=== PATIENT | female | born 1980 | race Hispanic/Latino ===

== ENCOUNTER 2019-06-11 06:57 | Day surgery (SDC) | payer BC ==
[2019-06-11] MEDS ORDERED: NA CHLORIDE 0.9% 250 ML ONE (07:37)
[2019-06-11 08:16] VITALS: BMI 34.1
[2019-06-11 09:50] VITALS: BP 113/67; TEMP 97.7; O2SAT 99
== END 2019-06-11 12:01 | disposition home or self-care (01) ==
LOC: DS 06:57
PROVIDERS: ATTEND Internal Medicine
DX: D64.9 Anemia, unspecified (principal)
CPT/HCPCS: 36415; 86900; 86850; 86901; 85018; 85014; 36430; P9016

== ENCOUNTER 2019-07-23 13:53 | Day surgery (SDC) | payer BC ==
[2019-07-23] MEDS ORDERED: CEFAZOLIN/SWI 1gm 1 GM/10 ML SYR IVP SCH (14:00)
[2019-07-23] MEDS ORDERED: Ringers Lactate 1,000 ML IV ONE ×2 (14:05→17:11)
[2019-07-23] MEDS ORDERED: CEFAZOLIN/SWI 1gm 1 GM/10 ML SYR ONE (14:06)
[2019-07-23 14:24] LABS: Protime INR 1.07
[2019-07-23 14:24] LABS: Urine Appearance CLEAR; Urine Bilirubin NEGATIVE (NEG); Urine Blood 3+ (NEG); Urine Glucose NEGATIVE (NEG); Urine Protein 2+ (NEG); Urine Specific Gravity 1.025 (1.005-1.030); Urine Urobilinogen 0.2 mg/dL (0.2-1.0)
[2019-07-23 14:25] LABS: Urine Microscopic Reflex ORDER UMIC
[2019-07-23 14:26] LABS: Specific Gravity 1.025 (1.005-1.030)
[2019-07-23 14:29] LABS: Absolute Lymphocytes (CBC) 1.9 K/uL (0.7-4.9); Basophils % 0.8 % (0-1.3); Hematocrit 35.7 % (36.0-45.0); Lymphocytes % 24.2 % (15.3-44.8); MPV 9.6 fL (7.6-11.3); RBC Red Blood Cell Count 4.85 M/uL (3.86-4.86)
[2019-07-23 14:35] LABS: Urine Bacteria 20-50 /HPF (<20); Urine Mucus MOD /HPF (NONE SEEN); Urine RBC LOADED /HPF (NONE SEEN)
[2019-07-23 14:37] LABS: Urine Color RED
[2019-07-23 14:39] LABS: Urine Culture Reflex Order REFLEXED
[2019-07-23] MEDS ORDERED: LIDOCAINE 2% MPF 5 ML VIAL ONE (14:57)
[2019-07-23] MEDS ORDERED: PROPOFOL 200 MG/20 ML VIAL IV ONE (14:57)
[2019-07-23] MEDS ORDERED: dexAMETHasone 10 MG/ML VIAL ONE (14:58)
[2019-07-23] MEDS ORDERED: FENTANYL CITR 100 MCG/2 ML ONE ×2 (14:58→16:52)
[2019-07-23] MEDS ORDERED: ONDANSETRON 4 MG/2 ML VIAL ONE (14:58)
[2019-07-23] MEDS ORDERED: KETOROLAC 30 MG/ML INJ ONE (14:58)
[2019-07-23] MEDS ORDERED: SILVER NITRATE 1 APPL TOP ONE (15:23)
[2019-07-23 15:25] LABS: Anisocytosis 2+; Blood Morphology Comment NOTED (NOT SEEN); Platelet Estimate ADEQ
--- NOTE | 2019-07-23 15:25 | PREOPHP ---
Date of Admission: 07/23/2019 History Of Present Illness: This is a 39-year-old female with severe dysfunctional uterine bleeding, was seen in the office and started on control pills twice a day. Did that through [facility] of May and June. Seems to have good success and now is bleeding to her pills. A week o r so ago, her hemoglobin was 12; it is 11 now in the office, but she is severely bleeding here. Her uterus seems to be normal size. Both adnexa clear, but her blood loss is substantial and she has alr jennifer had 1 blood transfusion. She needs an immediate D and C. Full preoperative counseling concerni ng procedure and possible complications including infection, blood loss, anesthetic complications, in jury to bladder, bowel, ureter, postoperative complications, and clots in the legs. We discussed hys teroscopy, MyoSure ablation. We will do a frozen section and not do the ablation unless tissue appea rs normal. Patient has history of palpitations, but no other known health problems. She ate a taco this morning, will stay n.p.o., and we will probably do the surgery sometime later today. I do not t hink this surgery can be postponed until tomorrow if she is bleeding significantly. Family History: Basically noncontributory to present illness and she has family history of cancers, but not genital cancers. Mother and father with hypertension. Past Surgical History: She has had 3 C-sections. She has had a tubal. Allergies: SHE HAS NO ALLERGIES. Social History: She does not smoke. Physical Examination: HEENT: Clear. Pupils are equal, round, and reactive to light and accommodation. Conjunctivae well perfused. No oral, lingual, or buccal lesions. Chest and Lungs: Clear. Heart: Without murmurs, thrills, heaves, or rubs. Breasts: Not examined. Genitourinary: The uterus is small. Both adnexa clear. Extremities: Clear without edema, cyanosis, or clubbing. She is bleeding substantially here in the office and needs to go straight to the hospital, be admitte d, and have D and C with the other mentioned procedures. KENISHA/RAJ Voice ID: [id number]
[2019-07-23 18:16] VITALS: O2SAT 100
[2019-07-23 18:18] VITALS: BP 122/76; TEMP 97.4
--- NOTE | 2019-07-24 01:38 | DS ---
Dismissal Summary: Patient underwent hysteroscopy with MyoSure, but ablation was not possible rosanna hernandez of inadequate seal with the cervix. Estimated blood loss at the time of surgery 150 mL. She got 1 g of Ancef. We will watch her in the recovery room for the next hour or so and then dismiss her to r eturn to my office in 1 week for followup to report any temperature elevation of 100 degrees or great er, severe pain, heavy bleeding, or any other type of abnormalities. We will await pathology report since it was not possible to do ablation. Patient knows that the recurrence of the bleeding in the f uture may occur and we could attempt an ablation another time when the cervix is less patulous. This will be discussed with the patient. Right now, we are just stabilizing the patient and we will dismi ss her and follow up in my office. KENISHA/RAJ Voice ID: [id number] Report ID: [id number]
--- NOTE | 2019-07-24 01:38 | OP ---
Surgeon: All Lazaro MD Preoperative Diagnosis: Severe dysfunctional uterine bleeding. History: Has a history of severe dysfunctional uterine bleeding, has been given a blood transfusion within the last 4-6 weeks, was put on control pills, but started bleeding again. Full discussi on about infection, blood loss, anesthetic complications, injury to bladder, bowel, ureter, postopera tive complications, clots in legs, pneumonia. The patient knows fully well, this does not constitute all the problems that could occur during or following the surgery. Anticipated hysteroscopy, MyoSur e ablation. General Anesthetic: Ancef 1 g prior to the procedure. Description Of Procedure: After prepping and draping, and time out, the uterus sounded to 10 cm. Hy steroscopy was performed showing a great deal of hyperplastic endometrial tissue, but no definite stew yps and no fibroids. MyoSure procedure was then performed with a large amount of tissue removed, 200 mL fluid reserved still left when the procedure was discontinued. At this point, ablation was attem pted, but the cervix was very patulous and in spite of gel, tenaculum on the cervix, and even 3 sutur es to try to close the cervix, ablation was not possible because a good intrauterine seal could not b e obtained. Procedure was discontinued. Light curetting was then performed. No further significant bleeding was seen. The patient tolerated all procedures well, was transferred back to the recovery room in good condition. Final Diagnoses: Severe dysfunctional bleeding, hysteroscopy, MyoSure performed, pathology pending. KENISHA/RAJ Voice ID: [id number] Report ID: [id number]
== END 2019-07-23 18:16 | disposition home or self-care (01) ==
LOC: OR 13:53
PROVIDERS: ATTEND Specialist
PROC: 0UJD8ZZ Inspection of Uterus and Cervix, Via Natural or Artificial Opening Endoscopic (ICD-10-PCS; 2019-07-23)
PROC: 0UDB7ZX Extraction of Endometrium, Via Natural or Artificial Opening, Diagnostic (ICD-10-PCS; principal; 2019-07-23 16:00)
DX: N93.8 Other specified abnormal uterine and vaginal bleeding (principal); K21.9 Gastro-esophageal reflux disease without esophagitis; Z98.51 Tubal ligation status; Z80.9 Family history of malignant neoplasm, unspecified; Z82.49 Family history of ischemic heart disease and other diseases of the circulatory system
CPT/HCPCS: 87088; 85025; 36415; 86900; 86850; 81025; 85610; 86901; 88305; 85730; 58558; J2704; J3010 ×2; J1100; J0690; J7120 ×2; J2405; 81003; 81015; 87086

== ENCOUNTER 2023-05-07 00:43 | Emergency (ER) | payer OTHER ==
[2023-05-07 02:00] LABS: Absolute Lymphocytes (CBC) 2.4 K/uL (0.7-4.9); Lymphocytes % 24.6 % (15.3-44.8); MPV 9.2 fL (7.6-11.3); Platelets 200 thou/uL (152-406); RBC Red Blood Cell Count 4.41 M/uL (3.86-4.86)
[2023-05-07 02:24] LABS: Albumin 3.9 g/dL (3.4-5.0); Bilirubin Direct 0.1 mg/dL (0-0.2); Bilirubin Indirect, Calculated 0.2 mg/dL (0.2-0.8); Bilirubin Total 0.3 mg/dL (0.2-1.0); Magnesium 2.2 mg/dL (1.6-2.4); Protein, Total 7.9 g/dL (6.4-8.2); Thyroid Stimulating Hormone 2.75 uIU/mL (0.358-3.740); Troponin High Sensitivity 4.4 pg/mL (<58.9)
[2023-05-07] MEDS ORDERED: POTASSIUM CL SA 10 MEQ TAB PO ONE (03:15)
--- NOTE | 2023-05-07 04:02 | EDPHYS ---
Physician Documentation [facility] Name: Erica Glover Age: 43 yrs Sex: Female : 1980 Arrival Date: 05/07/2023 Time: 00:43 Bed 6 Private MD: ED Physician Jana Gallego HPI: 05/07 03:56 This 43 yrs old Female presents to ER via Ambulatory with complaints of Chest sd2 Pain, Chest Tightness, Neck and Upper Back Pain. 03:56 43 yo F presents with CC of midsternal chest pain and tightness with left sided neck sd2 pain as well. Endorses some associated nausea but denies SOB, vomiting or diarrhea. No prior cardiac history. Reports associated palpitations and that it feels like her heart skips a beat.. Historical: - Allergies: 01:13 No Known Allergies; pf1 - PMHx: 01:13 UTI; Anemia; Diabetes mellitus; pf1 - PSHx: 01:13 Cholecystectomy; section; pf1 - Immunization history:: Adult Immunizations up to date, Client reports receiving the 1st dose of the Covid vaccine, Last tetanus immunization: < 5 years ago Flu vaccine is not up to date. - Social history:: Smoking status: Patient denies any tobacco usage or history of. Patient/guardian denies using alcohol, street drugs. ROS: 03:56 Constitutional: Negative for fever, chills, and weight loss, Eyes: Negative for injury, sd2 pain, redness, and discharge. 03:56 MS/Extremity: Negative for injury and deformity, Skin: Negative for injury, rash, and discoloration, Neuro: Negative for headache, numbness and tingling. 03:56 Cardiovascular: Positive for chest pain, palpitations, Negative for paroxysmal nocturnal dyspnea. Exam: 03:56 Constitutional: This is a well developed, well nourished patient who is awake, alert, sd2 and in no acute distress. Head/Face: Normocephalic, atraumatic. Eyes: EOMI, normal conjunctiva bilaterally Chest/axilla: Normal chest wall appearance and motion. Nontender with no deformity. Cardiovascular: Regular rate and rhythm with a normal S1 and S2. No gallops, murmurs, or rubs. 2+ distal pulses. Respiratory: Lungs have equal breath sounds bilaterally, clear to auscultation and percussion. No rales, rhonchi or wheezes noted. No increased work of breathing, no retractions or nasal flaring. Abdomen/GI: Soft, non-tender, with normal bowel sounds. No guarding or rebound. No evidence of tenderness throughout. Skin: Warm, dry with normal turgor. Normal color with no rashes, no lesions, and no evidence of cellulitis. MS/ Extremity: Pulses equal, no cyanosis. Neurovascular intact. Full, normal range of motion. Ambulatory without difficulty. Psych: Awake, alert, with orientation to person, place and time. Behavior, mood, and affect are within normal limits. Vital Signs: 00:58 BP 122 / 86; Pulse 80; Resp 16; Temp 97.8; Pulse Ox 100% on R/A; Weight 79.38 kg; pf1 Height 5 ft. 5 in. ; Pain 8/10; 01:20 BP 142 / 78; Pulse 83; Resp 20 S; Pulse Ox 99% on R/A; jw7 03:12 BP 115 / 80; Pulse 79; Resp 17; Temp 98; Pulse Ox 99% on R/A; rv 00:58 Body Mass Index 29.12 (79.38 kg, 165.1 cm) pf1 00:58 Pain Scale: Adult pf1 [place] Coma Score: 03:12 Eye Response: spontaneous(4). Motor Response: obeys commands(6). Verbal Response: rv oriented(5). Total: 15. MDM: 01:20 Patient medically screened. sd2 03:56 Differential diagnosis: Differential diagnosis includes but is not limited to: ACS, sd2 DVT/PE, pneumothorax, dissection, musculoskeletal, anxiety, anemia, electrolyte abnormality, pneumonia, CHF, COPD among others. HEART Score: History: Slightly Suspicious (0), ECG: Age: < or = 45 years (0), Risk Factors: No Risk Factors Known (0), Troponin: < or = 1 x Normal Limit (0), Total Score = 2. The patient was not given aspirin in the Emergency Department. Patient reports taking aspirin within the past 24 hours. Data reviewed: vital signs, nurses notes, lab test result(s), EKG, radiologic studies. I considered the following discharge prescriptions or medication management in the emergency department Medications were administered in the Emergency Department. See MAR. Counseling: I had a detailed discussion with the patient and/or guardian regarding the historical points, exam findings, and any diagnostic results supporting the discharge/admit diagnosis, lab results, radiology results, the need for outpatient follow up, to return to the emergency department if symptoms worsen or persist or if there are any questions or concerns that arise at home. ED course: pt feeling improved. Advised of results and feeling reassured. To follow up outpatient with PCP regarding symptoms. Hypokalemia present and replaced orally. Pt comfortable with plan for discharge and outpatient follow up and verbalizes understanding of strict return precautions.. 05/07 01:29 Order name: Basic Metabolic Panel; Complete Time: 02:25 sd2 05/07 01:29 Order name: CBC with Diff; Complete Time: 02:12 sd05/07 01:29 Order name: LFT's; Complete Time: 02:25 sd05/07 01:29 Order name: Magnesium; Complete Time: 02:25 sd05/07 01:29 Order name: NT PRO-BNP; Complete Time: 02:25 sd2 05/07 01:29 Order name: Troponin HS; Complete Time: 02:25 sd05/07 01:29 Order name: TSH; Complete Time: 02:25 sd05/07 01:29 Order name: T4 Free; Complete Time: 02:25 sd05/07 01:30 Order name: Glucose, Ancillary Testing; Complete Time: 02:12 EDMS 05/07 01:29 Order name: XRAY Chest (1 view) sd2 05/07 01:29 Order name: EKG; Complete Time: 01:30 sd2 05/07 01:29 Order name: Cardiac monitoring; Complete Time: :34 sd05/07 01:29 Order name: EKG - Nurse/Tech; Complete Time: 01:34 sd2 05/07 01:29 Order name: IV Saline Lock; Complete Time: :59 sd2 05/07 01:29 Order name: Labs collected and sent; Complete Time: :59 sd05/07 01:29 Order name: O2 Per Protocol; Complete Time: 01:34 sd2 05/07 01:29 Order name: O2 Sat Monitoring; Complete Time: 01:34 sd2 Administered Medications: 03:11 Drug: Potassium Chloride PO 40 mEq Route: PO; rv 03:12 Follow up: Response: Medication administered at discharge. rv 03:12 Not Given (Patient Refused): Ketorolac IVP 15 mg IVP once rv Disposition Summary: 05/07/23 04:02 Discharge Ordered Location: Home sd2 Problem: new sd2 Symptoms: have improved sd2 Condition: Stable sd2 Diagnosis - Palpitations sd2 - Chest pain, unspecified sd2 - Hypokalemia sd2 Followup: sd2 - With: Private Physician - When: 2 - 3 days - Reason: Recheck today's complaints, Continuance of care, Re-evaluation by your physician Discharge Instructions: - Discharge Summary Sheet sd2 - Nonspecific Chest Pain, Adult sd2 - Palpitations, [id number] sd2 Forms: - Medication Reconciliation Form sd2 - Thank You Letter sd2 - Antibiotic Education sd2 - Prescription Opioid Use sd2 - Patient Portal Instructions sd2 - Leadership Thank You Letter sd2 Signatures: Dispatcher [employer] Kavon Rowe RN RN rv Jana Gallego MD MD sd2 Alicia Jo RN RN pf1
--- NOTE | 2023-05-07 04:02 | ER ---
Nurse's Notes [facility] Name: Erica Glover Age: 43 yrs Sex: Female : 1980 Arrival Date: 05/07/2023 Time: 00:43 Bed 6 Private MD: Diagnosis: Palpitations;Chest pain, unspecified;Hypokalemia Presentation: 05/07 00:58 Chief complaint: Patient states: substernal chest pain of 8 that radiates to left neck pf1 with nausea, palpitations, fatigue and lightheadedness,onset yesterday PM while watching TV. Patient stated history of palpitations in the past with anemia. Coronavirus screen: Vaccine status: Patient reports receiving the 1st dose of the Covid vaccine. [employer] [place] Client denies travel out of the [place] in the last 14 days. At this time, the client does not indicate any symptoms associated with coronavirus-19. Ebola Screen: Patient negative for fever greater than or equal to 101.5 degrees Fahrenheit, and additional compatible Ebola Virus Disease symptoms. Initial Sepsis Screen: Does the patient meet any 2 criteria? No. Patient's initial sepsis screen is negative. Does the patient have a suspected source of infection? No. Patient's initial sepsis screen is negative. Risk Assessment: Do you want to hurt yourself or someone else? Patient reports no desire to harm self or others. 00:58 Method Of Arrival: Ambulatory pf1 00:58 Acuity: JONNY 2 pf1 01:17 Note FSBGL 103 in triage. pf1 01:58 Onset of symptoms was May 06, 2023. jw7 Historical: - Allergies: 01:13 No Known Allergies; pf1 - PMHx: 01:13 UTI; Anemia; Diabetes mellitus; pf1 - PSHx: 01:13 Cholecystectomy; section; pf1 - Immunization history:: Adult Immunizations up to date, Client reports receiving the 1st dose of the Covid vaccine, Last tetanus immunization: < 5 years ago Flu vaccine is not up to date. - Social history:: Smoking status: Patient denies any tobacco usage or history of. Patient/guardian denies using alcohol, street drugs. Screenin:20 [facility] ED Fall Risk Assessment (Adult) History of falling in the last 3 months, jw7 including since admission No falls in past 3 months (0 pts) Score/Fall Risk Level 0 - 2 = Low Risk. Abuse screen: Denies threats or abuse. Denies injuries from another. Nutritional screening: No deficits noted. Tuberculosis screening: No symptoms or risk factors identified. Assessment: 01:51 General: Appears in no apparent distress. comfortable, Behavior is calm, cooperative. jw7 Pain: Complains of pain in neck and chest Pain currently is 7 out of 10 on a pain scale. Quality of pain is described as pressure, Pain began 1 day ago. Is intermittent. Neuro: No deficits noted. Felder Agitation-Sedation Scale (RASS): 0 - Alert and Calm Level of Consciousness is awake, alert, obeys commands, Oriented to person, place, time, situation. Cardiovascular: No deficits noted. Reports chest pain, lightheadedness, nausea, palpitations, Heart tones S1 S2 present Capillary refill < 3 seconds Clubbing of nail beds is absent JVD is absent Patient's skin is warm and dry. Respiratory: Reports shortness of breath "feel like I need to take a deep breathe when I'm having palpitations" Airway is patent Trachea midline Respiratory effort is even, unlabored, Respiratory pattern is regular, symmetrical. GI: No deficits noted. No signs and/or symptoms were reported involving the gastrointestinal system. : No deficits noted. No signs and/or symptoms were reported regarding the genitourinary system. EENT: No deficits noted. No signs and/or symptoms were reported regarding the EENT system. Derm: No deficits noted. No signs and/or symptoms reported regarding the dermatologic system. Skin is intact, is healthy with good turgor, Skin is dry, Skin is normal, Skin temperature is warm. Musculoskeletal: No deficits noted. No signs and/or symptoms reported regarding the musculoskeletal system. Circulation, motion, and sensation intact. Capillary refill < 3 seconds, Range of motion: intact in all extremities. 02:45 Reassessment: Patient appears in no apparent distress at this time. No changes from jw7 previously documented assessment. Patient and/or family updated on plan of care and expected duration. Pain level reassessed. Patient is alert, oriented x 3, equal unlabored respirations, skin warm/dry/pink. 03:44 Reassessment: Patient appears in no apparent distress at this time. Patient and/or jw7 family updated on plan of care and expected duration. Pain level reassessed. Patient is alert, oriented x 3, equal unlabored respirations, skin warm/dry/pink. Patient states feeling better. Patient states symptoms have improved. Vital Signs: 00:58 BP 122 / 86; Pulse 80; Resp 16; Temp 97.8; Pulse Ox 100% on R/A; Weight 79.38 kg; pf1 Height 5 ft. 5 in. ; Pain 8/10; 01:20 BP 142 / 78; Pulse 83; Resp 20 S; Pulse Ox 99% on R/A; jw7 03:12 BP 115 / 80; Pulse 79; Resp 17; Temp 98; Pulse Ox 99% on R/A; rv 00:58 Body Mass Index 29.12 (79.38 kg, 165.1 cm) pf1 00:58 Pain Scale: Adult pf1 [place] Coma Score: 03:12 Eye Response: spontaneous(4). Motor Response: obeys commands(6). Verbal Response: rv oriented(5). Total: 15. ED Course: 00:46 Patient arrived in ED. jj6 01:12 Jana Gallego MD is Attending Physician. sd2 01:13 Triage completed. pf1 01:20 Danitza Velasquez, RN is Primary Nurse. jw7 01:20 Patient has correct armband on for positive identification. Placed in gown. Bed in low jw7 position. Call light in reach. Side rails up X 1. 01:49 Initial lab(s) drawn, by me, sent to lab. Inserted saline lock: 20 gauge in right hand, jw7 using aseptic technique. Blood collected. 01:58 Arm band placed on. jw7 01:59 Basic Metabolic Panel Sent. jw7 01:59 CBC with Diff Sent. jw7 01:59 LFT's Sent. jw7 01:59 Magnesium Sent. jw7 01:59 NT PRO-BNP Sent. jw7 01:59 Troponin HS Sent. jw7 02:25 XRAY Chest (1 view) In Process Unspecified. EDMS 03:12 No provider procedures requiring assistance completed. IV discontinued, intact, rv bleeding controlled, No redness/swelling at site. Pressure dressing applied. 03:13 Provided Education on: HYPOKALEMIA. rv Administered Medications: 03:11 Drug: Potassium Chloride PO 40 mEq Route: PO; rv 03:12 Follow up: Response: Medication administered at discharge. rv 03:12 Not Given (Patient Refused): Ketorolac IVP 15 mg IVP once rv Medication: 03:12 VIS not applicable for this client. rv Outcome: 03:13 Discharged to home ambulatory. rv 03:13 Condition: good 04:02 Discharge ordered by . sd2 04:06 Discharge instructions given to patient, Instructed on discharge instructions, follow rv up and referral plans. Demonstrated understanding of instructions, follow-up care. 04:06 Patient left the ED. rv Signatures: Dispatcher [employer] EDMS Kavon Alvarez RN RN rv Erica Rae jj6 Danitza Velasquez RN RN jw7 Jana Gallego MD MD sd2 Ailcia Jo RN RN pf1 Corrections: (The following items were deleted from the chart) 01:15 00:58 Chief complaint: Patient states: substernal chest pain of 8 that radiates to left pf1 neck with nausea, palpitations and lightheadedness,onset yesterday PM while watching TV. Patient stated history of palpitations in the past with anemia. pf1
[2023-05-07 04:21] VITALS: O2SAT 99
[2023-05-07 04:26] VITALS: BP 115/80; TEMP 98
--- NOTE | 2023-05-08 11:55 | RAD REPORT ---
EXAM DESCRIPTION: RAD - Chest Single View - 05/07/2023 2:23 am CLINICAL HISTORY: CHEST PAIN TECHNIQUE: AP chest COMPARISON: None available for comparison FINDINGS: CHEST: Heart: The cardiomediastinal silhouette is within normal limits. Lungs: No focal consolidation. Mediastinum: Unremarkable Pleura: No appreciable effusion. No pneumothorax. Bones: Intact IMPRESSION: No acute cardiopulmonary disease. Electronically signed by: Merlin Daniels MD 05/07/2023 3:08 AM CDT Due to temporary technical issues with the PACS/Fluency reporting system, reports are being signed by the in house radiologist without review as a courtesy to ensure prompt reporting. The interpreting r adiologist is fully responsible for the content of the report.
--- NOTE | 2023-05-08 18:00 | EKG ---
Test Date: 2023-05-07 Test Time: 00:56:53 Web Consultant: JOSEP MEASUREMENT RESULTS: Intervals: Rate: 77 IA: 146 QRSD: 66 QT: 370 QTc: 418 Viola: P: 59 IA: 146 QRS: 47 T: 53 INTERPRETIVE STATEMENTS: Normal sinus rhythm Low voltage QRS Borderline ECG No previous ECG available for comparison Electronically Signed On 05-08-23 17:57:18 CDT by Atul Madrid
== END 2023-05-07 04:06 | disposition home or self-care (01) ==
LOC: ER 00:43
DX: R07.89 Other chest pain (principal); R00.2 Palpitations; E87.6 Hypokalemia
CPT/HCPCS: 36415; 71045; 80048; 80076; 82947; 83735; 83880; 84439; 84443; 84484; 85025; 93005; 99284

== ENCOUNTER 2024-04-08 20:26 | Emergency (ER) | payer OTHER ==
[2024-04-08] MEDS ORDERED: NA CHLORIDE 0.9% 1,000 ML ONE (21:46)
[2024-04-09] LABS: Barbiturates NEGATIVE (NEGATIVE); Benzodiazepines NEGATIVE (NEGATIVE); Cocaine NEGATIVE (NEGATIVE); METHAMPHETAM NEGATIVE (NEGATIVE); Methadone NEGATIVE (NEGATIVE); Opiates NEGATIVE (NEGATIVE); Phencyclidine NEGATIVE (NEGATIVE); THC Cannibis NEGATIVE (NEGATIVE)
[2024-04-09 00:07] LABS: Specific Gravity 1.015 (1.005-1.030); Sqamous Epithelial None Seen /HPF (None Seen); Urine Bacteria None Seen /HPF (<20); Urine Bilirubin NEGATIVE (Negative); Urine Blood Negative (Negative); Urine Clarity Extremely Turbid (Clear); Urine Color Light-Yellow (Yellow); Urine Culture Reflex Order NOT NEEDED; Urine Glucose NEGATIVE (Negative); Urine Ketones NEGATIVE (Negative); Urine Micro Reflex YN NO BILL MICROSCOPIC; Urine Nitrite NEGATIVE (Negative); Urine Protein NEGATIVE (Negative); Urine RBC None Seen /HPF (None Seen); Urine Urobilinogen Normal (Normal); Urine WBC None Seen /HPF (<5)
[2024-04-09 00:25] LABS: D-Dimer 0.267 FEUug/mL (0-0.50); PT Prothrombin Time 11.7 SECONDS (9.4-12.5); Protime INR 1.05
--- NOTE | 2024-04-09 00:26 | RAD REPORT ---
EXAM DESCRIPTION: RADChest Single View04/08/2024 10:16 pm CLINICAL HISTORY: PALPITATIONS COMPARISON: Chest Single View dated 05/07/2023 TECHNIQUE: Portable AP view of the chest. FINDINGS: The lungs are clear. No pneumothorax or effusion. The cardiomediastinal contours are unre markable. IMPRESSION: No acute cardiopulmonary process.
[2024-04-09 01:15] LABS: Absolute Basophils 0.1 K/uL (0-0.5); Absolute Eosinophils 0.2 K/uL (0-0.5); Absolute Lymphocytes (CBC) 2.6 K/uL (0.7-4.9); Absolute Monocytes 0.7 K/uL (0.1-1.3); Absolute Neutrophil 5.5 K/uL (1.8-8.0); Basophils % 0.7 % (0-1.3); Eosinophils % 1.8 % (0-4.4); Hematocrit 35.1 % (36.0-45.0); Hemoglobin 11.1 g/dL (12.0-15.0); Lymphocytes % 29.1 % (15.3-44.8); MCH 25.6 pg (27.0-35.0); MCHC 31.7 g/dL (32.0-36.0); MCV 80.8 fL (80-100); MPV 9.7 fL (7.6-11.3); Monocytes % 7.2 % (3.3-12.3); Neutrophils % 61.2 % (41.7-73.7); Platelets 177 thou/uL (152-406); RBC Red Blood Cell Count 4.34 M/uL (3.86-4.86); Red Cell Distribution Width 15.8 % (12.1-15.2)
[2024-04-09 01:34] LABS: Anion Gap 5.1 mEq/L (5.0-15.0); BUN Blood Urea Nitrogen 12 mg/dL (7-18); Bicarbonate 28 mEq/L (21-32); Glomerular Filtration Rate 118 ml/min (=/>90); Glucose Level 86 mg/dL (74-106); Magnesium 2.3 mg/dL (1.6-2.4); Potassium 4.1 mEq/L (3.5-5.1); Sodium Level 136 mEq/L (136-145); T3 Free 2.53 pg/mL (2.18-3.98); Transferrin 297 mg/dL (200-360)
[2024-04-09 01:49] LABS: Troponin High Sensitivity < 3.0 pg/mL (<58.9)
--- NOTE | 2024-04-09 02:06 | ER ---
Nurse's Notes [facility] Name: Erica Glover Age: 43 yrs Sex: Female : 1980 Arrival Date: 04/08/2024 Time: 20:26 Bed 4 Private MD: Diagnosis: Palpitations;Shortness of breath;Iron deficiency anemia, unspecified Presentation: 04/08 21:23 Chief complaint: Patient states: I have been having palpitations for the past couple of jb4 weeks. Today it has been constant and worse and I have been of breath all day as well. Coronavirus screen: At this time, the client does not indicate any symptoms associated with coronavirus-19. Ebola Screen: No symptoms or risks identified at this time. Initial Sepsis Screen: Does the patient meet any 2 criteria? No. Patient's initial sepsis screen is negative. Does the patient have a suspected source of infection? No. Patient's initial sepsis screen is negative. Risk Assessment: Do you want to hurt yourself or someone else? Patient reports no desire to harm self or others. Onset of symptoms was April 08, 2024. Transition of care: patient was not received from another setting of care. 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 - Infectious Disease History:: Denies. - Social history:: Smoking status: Patient denies any tobacco usage or history of. Screenin:25 Abuse screen: Denies threats or abuse. Denies injuries from another. jw7 21:25 [facility] ED Fall Risk Assessment (Adult) History of falling in the last 3 months, jw7 including since admission No falls in past 3 months (0 pts) Confusion or Disorientation No (0 pts) Intoxicated or Sedated No (0 pts) Impaired Gait No (0 pts) Mobility Assist Device Used No (0 pt) Altered Elimination No (0 pt) Score/Fall Risk Level 0 - 2 = Low Risk Oriented to surroundings, Maintained a safe environment, Educated pt \T\ family on fall prevention, incl call for assistance when getting out of bed. Nutritional screening: No deficits noted. Tuberculosis screening: No symptoms or risk factors identified. Assessment: 21:25 Pain: Denies pain. Neuro: Level of Consciousness is awake, alert, obeys commands, jw7 Oriented to person, place, time, situation, Appropriate for age. Cardiovascular: Heart tones S1 S2 present Capillary refill < 3 seconds Clubbing of nail beds is absent JVD is absent Patient's skin is warm and dry. Respiratory: Airway is patent Trachea midline Respiratory effort is even, unlabored, Respiratory pattern is regular, symmetrical, Breath sounds are clear bilaterally. 21:25 GI: Abdomen is flat, non-distended, Bowel sounds present X 4 quads. Abd is soft and non jw7 tender X 4 quads. : No deficits noted. No signs and/or symptoms were reported regarding the genitourinary system. EENT: No deficits noted. No signs and/or symptoms were reported regarding the EENT system. Derm: Skin is intact, is healthy with good turgor, Skin is dry, Skin is normal, Skin temperature is warm. Musculoskeletal: Circulation, motion, and sensation intact. Range of motion: intact in all extremities. 21:25 General: Appears in no apparent distress. comfortable, Behavior is calm, cooperative, jw7 appropriate for age. 22:30 Reassessment: Patient appears in no apparent distress at this time. No changes from jw7 previously documented assessment. Patient and/or family updated on plan of care and expected duration. Pain level reassessed. Patient is alert, oriented x 3, equal unlabored respirations, skin warm/dry/pink. 23:30 Reassessment: Patient appears in no apparent distress at this time. No changes from jw7 previously documented assessment. Patient and/or family updated on plan of care and expected duration. Pain level reassessed. Patient is alert, oriented x 3, equal unlabored respirations, skin warm/dry/pink. 04/09 00:30 Reassessment: Patient appears in no apparent distress at this time. No changes from jw7 previously documented assessment. Patient and/or family updated on plan of care and expected duration. Pain level reassessed. Patient is alert, oriented x 3, equal unlabored respirations, skin warm/dry/pink. 01:30 Reassessment: Patient appears in no apparent distress at this time. Patient and/or jw7 family updated on plan of care and expected duration. Pain level reassessed. Patient is alert, oriented x 3, equal unlabored respirations, skin warm/dry/pink. Patient states feeling better. Patient states symptoms have improved. 02:30 Reassessment: Patient appears in no apparent distress at this time. No changes from jw7 previously documented assessment. Patient and/or family updated on plan of care and expected duration. Pain level reassessed. Patient is alert, oriented x 3, equal unlabored respirations, skin warm/dry/pink. Vital Signs: 04/08 21:23 BP 148 / 96; Pulse 83; Resp 16; Pulse Ox 99% on R/A; Weight 79.38 kg (R); Height 5 ft. jb4 6 in. ; Pain 0/10; 22:30 BP 128 / 88; Pulse 74; Resp 17 S; Pulse Ox 100% on R/A; jw7 23:30 BP 131 / 87; Pulse 84; Resp 18 S; Pulse Ox 100% on R/A; jw7 04/09 00:30 BP 97 / 61; Pulse 85; Resp 16 S; Pulse Ox 100% on R/A; jw7 01:36 BP 147 / 89; Pulse 78; Resp 16; Pulse Ox 100% ; 12 02:30 BP 122 / 85; Pulse 76; Resp 16 S; Pulse Ox 100% on R/A; jw7 04/08 21:23 Body Mass Index 28.25 (79.38 kg, 167.64 cm) 4 04/08 21:23 Pain Scale: Adult [facility] ED Course: 04/08 20:28 Patient arrived in ED. jj6 20:30 Jamie Markham PA is PHCP. cp 20:30 Abimael Olguin MD is Attending Physician. cp 21:25 Arm band placed on. jw7 21:25 Patient has correct armband on for positive identification. Bed in low position. Call jw7 light in reach. Provided Education on: use of call light. 21:27 Triage completed. jb4 22:18 XRAY Chest (1 view) In Process Unspecified. EDMS 22:40 Inserted saline lock: 22 gauge in left antecubital area, using aseptic technique. jw7 Flushed with 10 mL NS. 22:41 Initial lab(s) drawn, by me, sent to lab. jw7 22:57 No provider procedures requiring assistance completed. jw7 04/09 00:04 Inserted saline lock: 22 gauge in right hand, using aseptic technique. Blood collected. jm12 Flushed with 10 mL NS. 00:47 Basic Metabolic Panel Sent. 12 00:47 CBC with Diff Sent. 12 00:47 Troponin HS Sent. 12 00:47 Magnesium Sent. 12 01:13 EKG done, by ED staff, reviewed by Jamie BRAND. oe 02:30 IV discontinued, intact, bleeding controlled, No redness/swelling at site. Pressure jw7 dressing applied, X2. Administered Medications: 04/08 22:41 Drug: NS 0.9% IV 1000 ml IV at 1 bolus Per protocol; 1000 mL bolus Route: IV; Rate: 1 jw7 bolus; Site: left antecubital; 04/09 03:00 Follow up: Response: No adverse reaction; IV Status: Completed infusion; IV Intake: jw7 1000ml Medication: 04/08 22:58 VIS not applicable for this client. jw7 Intake: 04/09 03:00 IV: 1000ml; Total: 1000ml. jw7 Outcome: 02:05 Discharge ordered by . doyle 02:30 Condition: stable jw7 02:30 Discharged to home ambulatory, jw7 02:30 Discharge instructions given to patient, Instructed on discharge instructions, follow up and referral plans. medication usage, Demonstrated understanding of instructions, follow-up care, medications, Prescriptions given X 1, 02:30 Patient left the ED. jw7 Signatures: Dispatcher [employer] EDMS Jamie Markham PA PA cp Bryson, James, RN RN jb4 Al Lovell Jennifer jj6 Danitza Velasquez RN RN jw7 Negra Arce, RN RN jm12 Corrections: (The following items were deleted from the chart) 04/08 21:27 21:27 Allergies: Aspirin; nando collier 22:56 22:55 General: Appears in no apparent distress. comfortable, Behavior is calm, jw7 cooperative, appropriate for age, jw7 22:57 21:25 General: Appears in no apparent distress. comfortable, Behavior is calm, jw7 cooperative, appropriate for age, jw7 04/09 03:00 03:00 Patient left the ED. jw7 jw7
--- NOTE | 2024-04-09 02:06 | EDPHYS ---
Physician Documentation [facility] Name: Erica Glover Age: 43 yrs Sex: Female : 1980 Arrival Date: 04/08/2024 Time: 20:26 Bed 4 Private MD: ED Physician Abimael Olguin HPI: 04/08 21:32 This 43 yrs old Female presents to ER via Ambulatory with complaints of cp Irregular Pulse, Shortness Of Breath. 21:32 The patient presents with a history of irregular heart beat, heart racing. cp 21:32 Context: The symptoms occur at rest, with light activity. Onset: The symptoms/episode cp began/occurred intermittent for past several weeks, became persistent today with shortness of breath. Associated signs and symptoms: Pertinent negatives: chest pain, cough, nausea, syncope, near-syncope, unusual stressors, vomiting. Severity of symptoms: in the emergency department the symptoms are unchanged despite home interventions. 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 - Infectious Disease History:: Denies. - Social history:: Smoking status: Patient denies any tobacco usage or history of. ROS: 21:35 Constitutional: Negative for body aches, chills, fever, poor PO intake, cp 21:35 Eyes: Negative for injury, pain, redness, and discharge, cp 21:35 ENT: Negative for ear pain, sore throat, difficulty swallowing, difficulty handling secretions, 21:35 Cardiovascular: Positive for palpitations, Negative for chest pain, edema, 21:35 Respiratory: Positive for shortness of breath, on exertion. Negative for cough, wheezing, 21:35 Abdomen/GI: Negative for abdominal pain, vomiting, diarrhea, constipation, 21:35 Neuro: Negative for altered mental status, dizziness, headache, syncope, weakness, 21:35 All other systems are negative, Exam: 21:40 Constitutional: The patient appears in no acute distress, alert, awake, cp non-diaphoretic, non-toxic, well developed, well nourished, 21:40 Head/Face: Normocephalic, atraumatic. cp 21:40 Eyes: Periorbital structures: appear normal, Conjunctiva: normal, no exudate, no injection, Sclera: no appreciated abnormality, Lids and lashes: appear normal, bilaterally, 21:40 ENT: External ear(s): are unremarkable, Nose: is normal, Mouth: Lips: moist, Oral mucosa: pink and intact, moist, Posterior pharynx: Airway: no evidence of obstruction, patent, 21:40 Chest/axilla: Inspection: normal, 21:40 Cardiovascular: Rate: normal, Rhythm: regular, Edema: is not appreciated, JVD: is not appreciated, 21:40 Respiratory: the patient does not display signs of respiratory distress, Respirations: normal, no use of accessory muscles, no retractions, labored breathing, is not present, Breath sounds: are clear throughout, no decreased breath sounds, no stridor, no wheezing, 21:40 Abdomen/GI: Inspection: abdomen appears normal, Palpation: abdomen is soft and non-tender, in all quadrants, 21:40 Back: pain, is absent, ROM is normal, 21:40 Neuro: Orientation: is normal, Mentation: is normal, Motor: moves all fours, strength is normal, Sensation: is normal, 04/09 01:15 ECG was reviewed by the Attending Physician. cp Vital Signs: 04/08 21:23 BP 148 / 96; Pulse 83; Resp 16; Pulse Ox 99% on R/A; Weight 79.38 kg (R); Height 5 ft. jb4 6 in. ; Pain 0/10; 22:30 BP 128 / 88; Pulse 74; Resp 17 S; Pulse Ox 100% on R/A; jw7 23:30 BP 131 / 87; Pulse 84; Resp 18 S; Pulse Ox 100% on R/A; jw7 04/09 00:30 BP 97 / 61; Pulse 85; Resp 16 S; Pulse Ox 100% on R/A; jw7 01:36 BP 147 / 89; Pulse 78; Resp 16; Pulse Ox 100% ; jm12 02:30 BP 122 / 85; Pulse 76; Resp 16 S; Pulse Ox 100% on R/A; jw7 04/08 21:23 Body Mass Index 28.25 (79.38 kg, 167.64 cm) jb4 04/08 21:23 Pain Scale: Adult jb4 MDM: 04/08 21:14 Patient medically screened. 04/09 00:00 Differential diagnosis: arrythmia, dehydration, stress disorder, anxiety, electrolyte cp abnormality, pulmonary embolism, anemia, hypothyroidism, hyperthyroidism. 02:05 Data reviewed: vital signs, nurses notes, lab test result(s), EKG, radiologic studies, cp plain films, and as a result, I will discharge patient. 02:05 Care significantly affected by the following chronic conditions: Diabetes. Counseling: cp I had a detailed discussion with the patient and/or guardian regarding the historical points, exam findings, and any diagnostic results supporting the discharge/admit diagnosis, lab results, radiology results, the need for outpatient follow up, a automobile or truck rental dispatcher, a family practitioner, to return to the emergency department if symptoms worsen or persist or if there are any questions or concerns that arise at home. 04/08 21:15 Order name: Urinalysis W/Microscopic; Complete Time: 00:43 04/09 00:43 Interpretation: Normal except: [facility] Extremely Turbid; KANE Cx 1+. 04/08 21:15 Order name: Urine Drug Screen; Complete Time: 00:43 04/09 00:43 Interpretation: Reviewed. 04/08 21:15 Order name: Test, Urine; Complete Time: 00:43 04/09 00:44 Interpretation: Reviewed. 04/08 21:34 Order name: Basic Metabolic Panel; Complete Time: 01:58 04/09 01:59 Interpretation: Normal except: CRE 0.53. 04/08 21:34 Order name: CBC with Diff; Complete Time: 01:49 04/09 01:49 Interpretation: Normal except: HGB 11.1; HCT 35.1; MCH 25.6; MCHC 31.7; RDW 15.8. 04/08 21:34 Order name: D-Dimer; Complete Time: 00:43 04/09 00:43 Interpretation: Reviewed. 04/08 21:34 Order name: Magnesium; Complete Time: 01:58 04/08 21:34 Order name: PT-INR; Complete Time: 00:43 04/09 00:45 Interpretation: Reviewed. 04/08 21:34 Order name: Troponin HS; Complete Time: 01:58 04/08 21:34 Order name: TSH; Complete Time: 01:58 cp 04/08 21:34 Order name: T3 Free; Complete Time: 01:58 cp 04/08 21:34 Order name: Ferritin; Complete Time: 01:58 cp 04/09 01:59 Interpretation: Abnormal: JACQUE 4.0. cp 04/08 21:34 Order name: TIBC; Complete Time: 01:58 cp 04/09 01:59 Interpretation: Normal except: IRON 37.0; %SAT 8.9. 04/08 21:34 Order name: XRAY Chest (1 view); Complete Time: 00:43 cp 04/09 00:44 Interpretation: Report review. 04/08 21:15 Order name: EKG; Complete Time: 21:15 04/08 21:15 Order name: EKG - Nurse/Tech; Complete Time: 21:40 cp 04/08 21:34 Order name: Cardiac monitoring; Complete Time: 22:42 cp 04/08 21:34 Order name: IV Saline Lock; Complete Time: 22:41 cp 04/08 21:34 Order name: Labs collected and sent; Complete Time: 22:41 cp 04/08 21:34 Order name: O2 Per Protocol; Complete Time: 22:41 cp 04/08 21:34 Order name: O2 Sat Monitoring; Complete Time: 22:41 04/08 23:00 Order name: Misc. Order: recollect labs ; Complete Time: 00:47 kmf 04/09 00:27 Order name: Misc. Order: purple and green top recollect. ; Complete Time: 01:14 kmf EC:15 Rate is 83 beats/min. Rhythm is regular. SD interval is normal. QRS interval is normal. cp QT interval is normal. T waves are Inverted in lead aVR. Interpreted by me. Reviewed by me. Administered Medications: 04/08 22:41 Drug: NS 0.9% IV 1000 ml IV at 1 bolus Per protocol; 1000 mL bolus Route: IV; Rate: 1 jw7 bolus; Site: left antecubital; 04/09 03:00 Follow up: Response: No adverse reaction; IV Status: Completed infusion; IV Intake: jw7 1000ml Disposition: 04:12 Co-signature as Attending Physician, Abimael Olguin MD I agree with the assessment sp4 and plan of care. I reviewed the patient's care provided by the Advanced Practice Provider and agree with the diagnosis and treatment plan. Disposition Summary: 04/09/24 02:05 Discharge Ordered Notes: Location: Home cp Problem: new cp Symptoms: have improved cp Condition: Stable cp Diagnosis - Palpitations cp - Shortness of breath cp - Iron deficiency anemia, unspecified cp Followup: cp - With: Private Physician - When: 2 - 3 days - Reason: Recheck today's complaints Discharge Instructions: - Discharge Summary Sheet cp - Iron Deficiency Anemia, Adult cp - Palpitations cp - Shortness of Breath, Adult cp - Aspirin and Your Heart cp - Ambulatory Cardiac Monitoring cp Forms: - Medication Reconciliation Form cp - Antibiotic Education cp - Prescription Opioid Use cp - Patient Portal Instructions cp - Leadership Thank You Letter cp Prescriptions: - Ferrous Sulfate 325 mg (65 mg Iron) Oral tablet - take 1 tablet ORAL route every 12 hours; 30 tablet; Refills: 0, Product cp Selection Permitted Signatures: Dispatcher [employer] EDMS Jamie Markham PA PA cp Reynaldo Griffith RN RN jb4 Danitza Velasquez RN RN jw7 Abimael Olguin MD MD sp4 Jo Chávez [facility] Corrections: (The following items were deleted from the chart) 04/08 21:27 21:27 Allergies: Aspirin; [email or web address] 21:34 21:34 BASIC METABOLIC PANEL+C.LAB.BRZ ordered. EDMS EDMS 21:34 21:34 CBC+H.LAB.BRZ ordered. EDMS EDMS 21:34 21:34 D-DIMER+COAG.LAB.BRZ ordered. EDMS EDMS 21:34 21:34 MAGNESIUM+C.LAB.BRZ ordered. EDMS EDMS 21:34 21:34 PROTIME (+INR)+COAG.LAB.BRZ ordered. EDMS EDMS 21:34 21:34 Troponin High Sensitivity+C.LAB.BRZ ordered. EDMS EDMS 21:34 21:34 THYROID STIMULAT HORMONE+C.LAB.BRZ ordered. EDMS EDMS 21:34 21:34 T3 FREE+C.LAB.BRZ ordered. EDMS EDMS 21:34 21:34 FERRITIN+C.LAB.BRZ ordered. EDMS EDMS 21:34 21:34 TRANSFERRIN SAT/IRON BINDING+C.LAB.BRZ ordered. EDMS EDMS 04/10 01:03 04/09 00:00 Differential diagnosis: arrythmia, dehydration, stress disorder, anxiety, cp electrolyte abnormality, pulmonary embolism cp
--- NOTE | 2024-04-09 13:06 | EKG ---
Test Date: 2024-04-09 Test Time: 01:10:21 Addiction Counselor: ZHOU MEASUREMENT RESULTS: Intervals: Rate: 83 MO: 142 QRSD: 68 QT: 374 QTc: 439 Sumpter: P: 53 MO: 142 QRS: 30 T: 53 INTERPRETIVE STATEMENTS: Sinus rhythm with premature atrial complexes Low voltage QRS Borderline ECG Compared to ECG 05/07/2023 00:56:53 Atrial premature complex(es) now present Electronically Signed On 04-09-24 13:05:13 CDT by Atul Madrid
[2024-04-11 16:16] VITALS: BP 122/85; O2SAT 100
== END 2024-04-09 03:00 | disposition home or self-care (01) ==
LOC: ER 20:26
DX: R06.02 Shortness of breath (principal); R00.2 Palpitations; D50.9 Iron deficiency anemia, unspecified; E11.9 Type 2 diabetes mellitus without complications
CPT/HCPCS: 96361; 93005; 85025; 81001; 80048; 36415; 83735; 81025; 85610; 85379; 84443; 84484; 84481; 82728; 83540; 80307; 84466; 71045; 96360; 99284; J7030